=== PATIENT | female | born 1985 | race Two or more races ===

== ENCOUNTER 2019-09-14 09:15 | Emergency (ER) | payer OTHER ==
[2019-09-14 09:23] VITALS: BP 145/85; PULSE 84; TEMP 99.2; BMI 31.5
--- NOTE | 2019-09-14 10:07 | PDOC ---
History of Present Illness - General Chief Complaint: Vaginal Sxs Stated Complaint: VAGINAL DISCHARGE Time Seen by Provider: 09/14/19 09:34 History Source: Patient Exam Limitations: Clinical Condition - History of Present Illness Initial Comments: 09/14/19 10:04 Patient with no significant past medical history presented for evaluation of amenorrhea for 2 months with intermittent vaginal discharge. Patient reported last menstrual period was July 04 which is unusual for her as she gets her menstrual period every month. Patient report taking home test twice first 1 month ago and the second 1 week ago with negative results. Patient seeking to get and has not been using any control. Denies any vaginal discharge now. Denies dysuria but reports urinary frequency. Denies back pain, nausea, vomiting, abdominal pain, pelvic pain, fever or chills. Denies any other symptoms Is this a multiple visit Asthma Patient?: No Timing/Duration: intermittent Past History - Past Medical History Allergies/Adverse Reactions: Allergies Allergy/AdvReac Type Severity Reaction Status Date / Time No Known Allergies Allergy Verified 09/14/19 09:22 Home Medications: Ambulatory Orders NK [No Known Home Medication] 09/14/19 COPD: No - Reproductive History Is Patient Now?: No - Immunization History Immunization Up to Date: No - Psycho Social/Smoking Cessation Hx Smoking History: Never smoked Have you smoked in the past 12 months: No Information on smoking cessation initiated: No Hx Alcohol Use: No Drug/Substance Use Hx: No Review of Systems - Review of Systems Able to Perform ROS?: Yes Is the patient limited Guamanian proficient: No Constitutional: No: Chills, Fever, Malaise HEENTM: No: Symptoms Reported, See HPI, Eye Pain, Blurred Vision, Tearing, Recent change in vision, Double Vision, Cataracts, Ear Pain, Ocular Prothesis, Ear Discharge, Nose Pain, Nose Congestion, Tinnitus, Nose Bleeding, Hearing Loss , Throat Pain, Throat Swelling, Mouth Pain, Dental Problems, Difficulty Swallowing, Mouth Swelling, Other Respiratory: No: Symptoms reported, See HPI, Cough, Orthopnea, Shortness of Breath, SOB with Exertion, SOB at Rest, Stridor, Wheezing, Productive cough, Hemoptysis, Other Cardiac (ROS): No: Symptoms Reported, See HPI, Chest Pain, Edema, Irregular Heart Rate, Lightheadedness, Palpitations, Syncope, Chest Tightness, Other ABD/GI: No: Symptoms Reported, See HPI, Nausea, Vomiting, Abdominal cramping : Yes: Symptoms Reported, See HPI, Discharge (intermittent), Frequency. No: Burning, Dysuria, Flank Pain, Hematuria, Pain, Urgency Musculoskeletal: No: Symptoms Reported, Back Pain All Other Systems: Reviewed and Negative *Physical Exam - Vital Signs Last Vital Signs Temp Pulse Resp BP Pulse Ox 99.2 F 84 18 145/85 99 09/14/19 09:20 09/14/19 09:20 09/14/19 09:20 09/14/19 09:20 09/14/19 09:20 - Physical Exam General Appearance: Yes: Nourished, Appropriately Dressed. No: Apparent Distress HEENT: positive: Normal ENT Inspection Neck: positive: Supple Respiratory/Chest: positive: Lungs Clear, Normal Breath Sounds. negative: Respiratory Distress, Accessory Muscle Use Cardiovascular: positive: Regular Rhythm, Regular Rate Gastrointestinal/Abdominal: positive: Normal Bowel Sounds, Flat, Soft. negative : Tender Musculoskeletal: positive: Normal Inspection. negative: CVA Tenderness Extremity: positive: Normal Inspection Integumentary: positive: Normal Color Neurologic: positive: Fully Oriented, Alert, Normal Response Medical Decision Making - Medical Decision Making 09/14/19 10:05 Patient with no significant past medical history presented for evaluation of amenorrhea for 2 months with intermittent vaginal discharge. Patient reported last menstrual period was July 04 which is unusual for her as she gets her menstrual period every month. Patient report taking home test twice first 1 month ago and the second 1 week ago with negative results. Patient seeking to get and has not been using any control. Denies any vaginal discharge now. Denies dysuria but reports urinary frequency. Denies back pain, nausea, vomiting, abdominal pain, pelvic pain, fever or chills. Denies any other symptoms Patient in no acute distress and no abdominal tenderness on exam. Pelvic exam deferred due to no vaginal discharge today and will follow-up with [facility] for pelvic exam. Given amenorrhea, will repeat urine test to rule out . UA and urine culture ordered to rule out UTI. Treat based on urine results 09/14/19 10:46 Urine test negative. Will do serum test to confirm negative results 09/14/19 11:46 Patient serum test still negative. Patient will be discharged home with [facility] [facility] [facility] follow-up for amenorrhea work-up Discharge - Discharge Information Problems reviewed: Yes Clinical Impression/Diagnosis: Amenorrhea, secondary Condition: Stable Disposition: HOME - Admission No - Follow up/Referral Referrals: Alejandro Bello MD [Staff Physician] - Alison Diaz MD [Staff Physician] - - Patient Discharge Instructions Patient Printed Discharge Instructions: DI for Amenorrhea Additional Instructions: Your blood test is negative. Follow-up referred to [facility] for work-up of abnormal menstrual.. - Post Discharge Activity
[2019-09-14 10:50] LABS: EPI CELLS 3.7 /HPF (0-5/HPF); HYALINE CASTS 1 /lpf (0-8); PH,URINE 5.5 (5.0-8.0); URINE APPEARANCE CLEAR; URINE BACTERIA 42.8 /hpf (NEGATIVE); URINE BILIRUBIN NEGATIVE (NEGATIVE); URINE COLOR YELLOW; URINE GLUCOSE (UA) NEGATIVE (NEGATIVE); URINE KETONE NEGATIVE (NEGATIVE); URINE LEUK ESTERASE TRACE (NEGATIVE); URINE NITRITE NEGATIVE (NEGATIVE); URINE PROTEIN NEGATIVE (NEGATIVE); URINE RBC 4 /hpf (0-4); URINE UROBILINOGEN 0.2 mg/dL (0.2-1.0); URINE WBC 3 /hpf (0-5)
== END 2019-09-14 11:51 | disposition home or self-care (01) ==
LOC: JERFT 09:15
DX: N91.1 Secondary amenorrhea (principal)
CPT/HCPCS: 36415; 81003; 84703; 87086; 99283-25

== ENCOUNTER 2021-05-22 17:25 | Emergency (ER) | payer OTHER ==
[2021-05-22 17:44] VITALS: PULSE 89; TEMP 98.3; BMI 36.3
[2021-05-22 21:11] LABS: BASO % 0.7 % (0-2.0); EOS % 3.6 % (0-4.5); HEMATOCRIT 43.8 % (32.4-45.2); HEMOGLOBIN 14.1 GM/dL (10.7-15.3); LYMPH % 27.6 % (8-40); MCH 25.2 pg (25.7-33.7); MCHC 32.2 g/dl (32.0-36.0); MEAN CELL VOLUME 78.3 fl (80-96); MEAN PLT VOLUME 9.6 fl (7.5-11.1); NEUT % 59.1 % (42.8-82.8); PLATELET COUNT 207 10^3/uL (134-434); RDW 15.7 % (11.6-15.6); WHITE BLOOD COUNT 7.4 K/mm3 (4.0-10.0)
[2021-05-22 21:22] LABS: CHLORIDE 105 mmol/L (98-107); SODIUM 140 mmol/L (136-145)
[2021-05-22 21:24] LABS: CALCIUM 9.2 mg/dL (8.5-10.1)
[2021-05-22 21:25] LABS: ALBUMIN 3.8 g/dl (3.4-5.0); ANION GAP 7 MMOL/L (8-16); BLOOD UREA NITROGEN 9.6 mg/dL (7-18); CO2 28 mmol/L (21-32); GLUCOSE,RANDOM 95 mg/dL (74-106)
[2021-05-22 21:28] LABS: SGOT/AST 24 U/L (15-37); SGPT/ALT 38 U/L (13-61)
[2021-05-22 21:30] LABS: BILIRUBIN,TOTAL 0.7 mg/dL (0.2-1); TOT PROT 8.3 g/dl (6.4-8.2)
[2021-05-22 21:31] LABS: ALK PHOS 105 U/L (45-117)
[2021-05-22 23:03] VITALS: BP 152/105
== END 2021-05-22 23:04 | disposition home or self-care (01) ==
LOC: JER 17:25
DX: R07.9 Chest pain, unspecified (principal)
CPT/HCPCS: 36415; 71046-TC-FY; 80053; 82550; 82553; 84484; 84703; 85025; 93005; 93010; 99285-25

== ENCOUNTER 2023-05-27 20:15 | Emergency (ER) | payer OTHER ==
[2023-05-27 20:34] VITALS: BP 151/97; PULSE 87; RESP 20; TEMP 99; BMI 35.4
[2023-05-27 22:16] LABS: HEMATOCRIT 41.9 % (32.4-45.2); HEMOGLOBIN 13.9 GM/dL (10.7-15.3); MCH 24.9 pg (25.7-33.7); MEAN CELL VOLUME 75.3 fl (80-96); MEAN PLT VOLUME 9.5 fl (7.5-11.1); PLATELET COUNT 217 10^3/uL (134-434); RBC 5.57 M/mm3 (3.60-5.2); RDW 15.6 % (11.6-15.6); WHITE BLOOD COUNT 7.3 K/mm3 (4.0-10.0)
[2023-05-27 22:20] LABS: EPI CELLS 25 /uL (0-25.1); HYALINE CASTS 0 /uL (0-3.1); URINE APPEARANCE CLEAR; URINE BACTERIA 1342 /uL (0-1359); URINE BILIRUBIN NEGATIVE (NEGATIVE); URINE COLOR YELLOW; URINE GLUCOSE (UA) NEGATIVE (NEGATIVE); URINE KETONE NEGATIVE (NEGATIVE); URINE LEUK ESTERASE 3+ (NEGATIVE); URINE NITRITE NEGATIVE (NEGATIVE); URINE PROTEIN NEGATIVE (NEGATIVE); URINE RBC 18 /uL (0-23.9); URINE UROBILINOGEN 0.2 mg/dL (0.2-1.0); URINE WBC 232 /uL (0-25.8)
[2023-05-27 22:21] LABS: HCG,QUALITATIVE URINE Negative
[2023-05-27 22:34] LABS: POTASSIUM 4.1 mmol/L (3.5-5.1)
[2023-05-27 22:36] LABS: CALCIUM 8.7 mg/dL (8.5-10.1)
[2023-05-27 22:37] LABS: ALBUMIN 3.8 g/dl (3.4-5.0); BLOOD UREA NITROGEN 7.4 mg/dL (7-18)
[2023-05-27 22:40] LABS: CREATININE 0.9 mg/dL (0.55-1.3)
[2023-05-27 22:41] LABS: BILIRUBIN,TOTAL 0.6 mg/dL (0.2-1)
[2023-05-27 22:42] LABS: TOT PROT 8.3 g/dl (6.4-8.2)
[2023-05-28] MEDS ORDERED: KETOROLAC TROMETHAMINE 30 MG/1 ML VIAL IM ONE (00:02)
[2023-05-28] MEDS ORDERED: KETOROLAC TROMETHAMINE 30 MG/1 ML VIAL ONE (00:11)
[2023-05-28] MEDS ORDERED: KETOROLAC TROMETHAMINE 30 MG/1 ML VIAL IVPUSH ONE (00:20)
== END 2023-05-28 01:45 | disposition home or self-care (01) ==
LOC: JER 20:15
PROC: 3E0333Z Introduction of Anti-inflammatory into Peripheral Vein, Percutaneous Approach (ICD-10-PCS; principal; 2023-05-28)
DX: M54.50 Low back pain, unspecified (principal); R07.89 Other chest pain; K59.01 Slow transit constipation; N30.01 Acute cystitis with hematuria
CPT/HCPCS: 36415; 71046-TC-FY; 71260-TC; 74019-TC-FY; 80053; 81003; 83605; 84703; 85027; 85379; 93005; 93010; 93970-TC; 99285-25; Q9967

== ENCOUNTER 2024-05-06 17:40 | Emergency (ER) | payer OTHER ==
[2024-05-06 17:55] VITALS: BP 146/89; PULSE 79; RESP 18; TEMP 98.2; BMI 34.4
[2024-05-06 20:39] LABS: BASO % 0.7 % (0-2.0); EOS % 3.1 % (0-4.5); HEMATOCRIT 38.4 % (32.4-45.2); HEMOGLOBIN 12.3 GM/dL (10.7-15.3); LYMPH % 29.9 % (8-40); MCH 23.8 pg (25.7-33.7); MEAN CELL VOLUME 74.2 fl (80-96); MEAN PLT VOLUME 9.8 fl (7.5-11.1); MONO % 6.7 % (3.8-10.2); NEUT % 59.6 % (42.8-82.8); PLATELET COUNT 268 10^3/uL (134-434); RBC 5.17 M/mm3 (3.60-5.2); RDW 15.5 % (11.6-15.6); WHITE BLOOD COUNT 8.9 K/mm3 (4.0-10.0)
[2024-05-06 20:47] LABS: INR 1.21 (0.83-1.09); PROTHROMBIN TIME (PATIENT) 13.8 SEC (9.7-13.0)
[2024-05-06 20:49] LABS: ACTIVATED PTT 37.8 SECONDS (25.2-36.5)
[2024-05-06 20:58] LABS: POTASSIUM 3.5 mmol/L (3.5-5.1)
[2024-05-06 21:00] LABS: CALCIUM 9.5 mg/dL (8.5-10.1)
[2024-05-06 21:01] LABS: ALBUMIN 3.9 g/dl (3.4-5.0); BLOOD UREA NITROGEN 7.4 mg/dL (7-18)
[2024-05-06 21:04] LABS: CREATININE 0.9 mg/dL (0.55-1.3)
[2024-05-06 21:05] LABS: BILIRUBIN,TOTAL 0.6 mg/dL (0.2-1)
[2024-05-06] MEDS ORDERED: KETOROLAC TROMETHAMINE 15 MG/ML VIAL ONE (21:28)
[2024-05-06] MEDS: KETOROLAC TROMETHAMINE 15 MG/ML VIAL IVPUSH ONE (22:11)
== END 2024-05-06 23:47 | disposition home or self-care (01) ==
LOC: JER 17:40
PROC: 3E0333Z Introduction of Anti-inflammatory into Peripheral Vein, Percutaneous Approach (ICD-10-PCS; principal; 2024-05-06)
DX: R07.2 Precordial pain (principal); R06.02 Shortness of breath; R53.1 Weakness
CPT/HCPCS: 36415; 71046-TC-FY; 71275-TC; 80053; 84484; 84703; 85025; 85379; 85610; 85730; 93005; 93010; 99285-25